=== PATIENT | female | born 1970 | race Two or more races ===

== ENCOUNTER 2024-04-01 14:43 | Outpatient (AMB) | payer BC, MEDICAID, SELFPAY ==
[2024-04-01 15:03] VITALS: BP 123/83; PULSE 75; RESP 18; TEMP 36.8; O2SAT 98; BMI 27.5
--- NOTE | 2024-04-01 15:03 | PD.ORTHCLVIS ---
Vital signs 04/01/24 15:03 Height 1.68 m Height Method Stated Weight 77.621 kg Weight Measurement Method Standing Scale BMI 27.5 BP 123/83 Blood Pressure Source Automatic Cuff Blood Pressure Location Right Upper Arm Position Sitting Respiration 18 Pulse 75 Pulse Source Monitor Temp 98.3 F Temp Source Temporal Artery Scan Pulse Oximetry (%) 98 Oxygen Delivery Method Room Air Med/Allergies Allergies & Medications Allergies No Known Drug Allergies Allergy (Verified 04/01/24 15:04) Medication Reconciliation meloxicam 7.5 mg tablet 7.5 mg PO QDAY #45 tabs 10/12/23 [Rx Confirmed 04/01/24] Subjective Visit Visit for: follow up visit and knee (LEFT) Immunization / Flu Flu Vaccine in the Last 12 Months: No Flu Vaccine Exclusion Criteria: Refused by Patient History of Present Illness Chief complaint: LEFT KNEE PAIN Patient is a 53-year-old female with 4 months of left knee pain. She was found to have a Herrera's cyst. She reports that she has difficulty bending when she has this. She has not had any injections and that has not had any anti-inflammatories. 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 Exam Exam Patient is in no acute distress and is cooperative with the examination today. Breathing is nonlabored. Patient has a normal mood and affect. Bilateral extremities were evaluated and demonstrates sensation intact to light touch. Palpable pedal pulses are present. No significant edema is present. Bilateral hips were examined. The patient has no pain with log roll of the hips. Internal rotation to 30 degrees and external rotation to 30 degrees is painless. Negative FADIR. Right knee was examined today. The right knee is in reasonable alignment. Range of motion from 0-120 degrees. Knee is stable to varus and valgus as well as AP translation with <5mm. Patient has a negative McMurrays. There is no pain with patellofemoral compression and no crepitus noted. The knee is nontender to palpation. Left knee was examined today. The left knee is in [varus] alignment. Range of motion from [0-115] degrees. Knee is stable to varus and valgus as well as AP translation with <5mm. Patient has a [negative] McMurrays. There is [no] pain with patellofemoral compression and [no] crepitus noted. The knee is [tender] to palpation [medially]. She does have a Herrera's cyst posteriorly Xrays demonstrate moderate arthritis of the left knee. Assessment and Plan Problem List (1) Arthritis of left knee: Status: Acute (2) Bakers cyst: Status: Acute Plan: Patient is a 53-year-old female with a Herrera's cyst and left knee pain. We discussed the natural history of arthritis in great detail. WShe has done somewhat better with meloxicam. We discussed we can try anti-inflammatories or injections. She would like a cortisone injection today. The patient has a lot of swelling in her left leg. It starts from the thigh and goes all the way down to her toes. I discussed with her that she should see her primary care doctor for this swelling. It is unlikely to be just from the knee alone. Recommend knee cortisone injection as patient would like to proceed with conservative treatment at this time. The risks and benefits of the procedure were reviewed with the patient and patient gave verbal consent to continue with the procedure. Procedure: performed by Dr. Mclean Using sterile technique the left knee was thoroughly prepped with alcohol, and approximately 1 cc of Kenalog 40 mg/mL and 4 cc of 1% lidocaine was injected without resistance into the medial tibial femoral joint space. The patient tolerated the procedure. Office Procedures GNS Level of Care Nursing/Assessment Patient Status: Established Patient Nursing Assessment/Reassesment: Medication Reconciliation, Update PMH in EMR and Vital Signs Coordination of Care: Complex Care and Chronic Disease 1-5, Education Complex Pt/Fam, Consent,records obtained, informed consent, Results/Orders obtained and Staff clarify orders Established Patient Charge Established Patient Point Assignment: 95 Established Patient Point Charge: EP Level 3 (80-115) Surgical Proc/IM SQ injection Major Surgical Procedure: Yes (knee injection ) Medication Given Medication Given Medication Given: Yes Documented Dose Given: 4 Route: Infiitration Medication Given Medication Given Medication Given: Yes Documented Dose Given: 1 Route: Infiitration Office Meds Xylocaine 10 mg/mL (1 %) injection solution Performing Provider: Abdullahi Mclean MD Performing Location: [facility] Administered by: Abdullahi Mclean MD on 04/01/24 15:43 Dose Route Admin Location Dispensed Lot Number Expiration Date [facility] Transition Rn 20 mL Infiltration 20 mL [id number] 12/10/26 71016-038-12 [facility] triamcinolone acetonide 40 mg/mL suspension for injection Performing Provider: Abdullahi Mclean MD Performing Location: [facility] Administered by: Abdullahi Mclean MD on 04/01/24 15:43 Dose Route Admin Location Dispensed Lot Number Expiration Date [facility] Transition Rn 40 mg Infiltration 1 mL [id number] 12/10/25 [address]-5 [employer] Past Medical History Past Medical History Have you ever been diagnosed with any of the following: Respiratory Problems Smoking: Yes (8 YEARS) Smoking Exposure: Yes
== END 2024-04-01 15:47 | disposition home or self-care (01) ==
PROVIDERS: PCP Family Medicine; Referring Provider Family Medicine; Supervising Provider Orthopaedic Surgery Adult Reconstructive Orthopaedic Surgery; Visit Provider Orthopaedic Surgery Adult Reconstructive Orthopaedic Surgery
DX: M17.12 Unilateral primary osteoarthritis, left knee (principal); M71.22 Synovial cyst of popliteal space [Baker], left knee; M25.562 Pain in left knee
CPT/HCPCS: 20610; 99213; J3301; J3490; G0463

== ENCOUNTER 2024-07-03 09:00 | Outpatient (AMB) | payer MEDICAID, SELFPAY ==
--- NOTE | 2024-07-03 09:36 | PD.ORTHCLVIS ---
Vital signs 07/03/24 09:41 Height 1.68 m Height Method Stated Weight 79.577 kg Weight Measurement Method Standing Scale BMI 28.2 BP 120/81 Blood Pressure Source Automatic Cuff Blood Pressure Location Left Upper Arm Position Sitting Respiration 18 Pulse 68 Pulse Source Monitor Temp 97.8 F Temp Source Temporal Artery Scan Pulse Oximetry (%) 98 Oxygen Delivery Method Room Air Med/Allergies Allergies & Medications Allergies No Known Drug Allergies Allergy (Verified 07/03/24 09:41) Medication Reconciliation meloxicam 7.5 mg tablet 7.5 mg PO QDAY #45 tabs 10/12/23 [Rx Confirmed 07/03/24] Exam Exam Patient is in no acute distress and is cooperative with the examination today. Breathing is nonlabored. Patient has a normal mood and affect. Bilateral extremities were evaluated and demonstrates sensation intact to light touch. Palpable pedal pulses are present. No significant edema is present. Bilateral hips were examined. The patient has no pain with log roll of the hips. Internal rotation to 30 degrees and external rotation to 30 degrees is painless. Negative FADIR. Right knee was examined today. The right knee is in reasonable alignment. Range of motion from 0-120 degrees. Knee is stable to varus and valgus as well as AP translation with <5mm. Patient has a negative McMurrays. There is no pain with patellofemoral compression and no crepitus noted. The knee is nontender to palpation. Left knee was examined today. The left knee is in [varus] alignment. Range of motion from [0-115] degrees. Knee is stable to varus and valgus as well as AP translation with <5mm. Patient has a [negative] McMurrays. There is [no] pain with patellofemoral compression and [no] crepitus noted. The knee is [tender] to palpation [medially]. She does have a Herrera's cyst posteriorly Xrays demonstrate moderate arthritis of the left knee. Assessment and Plan Problem List (1) Arthritis of left knee: Status: Acute (2) Bakers cyst: Status: Acute Plan: Patient is a 53-year-old female with a Herrera's cyst and left knee pain. We discussed the natural history of arthritis in great detail. She has done somewhat better with meloxicam. WShe would like another cortisone injection today. Recommend knee cortisone injection as patient would like to proceed with conservative treatment at this time. The risks and benefits of the procedure were reviewed with the patient and patient gave verbal consent to continue with the procedure. Procedure: performed by Dr. Mclean Using sterile technique the left knee was thoroughly prepped with alcohol, and approximately 1 cc of Kenalog 40 mg/mL and 4 cc of 1% lidocaine was injected without resistance into the medial tibial femoral joint space. The patient tolerated the procedure. Office Procedures GNS Level of Care Nursing/Assessment Patient Status: Established Patient Nursing Assessment/Reassesment: Medication Reconciliation, Update PMH in EMR and Vital Signs Coordination of Care: Complex Care and Chronic Disease 1-5, Consent,records obtained, informed consent, Education Simp Pt/Fam, Results/Orders obtained and Staff clarify orders Established Patient Charge Established Patient Point Assignment: 90 Established Patient Point Charge: EP Level 3 (80-115) Medication Given Medication Given Medication Given: Yes Documented Dose Given: 4 Route: Infiitration Medication Given Medication Given Medication Given: Yes Documented Dose Given: 1 Route: Infiitration Office Meds Xylocaine 10 mg/mL (1 %) injection solution Performing Provider: Abdullahi Mclean MD Performing Location: [facility] Administered by: Abdullahi Mclean MD on 07/03/24 09:56 Dose Route Admin Location Dispensed Lot Number Expiration Date [facility] Director [employer] 20 mL Infiltration 20 mL [id number] 09/11/27 92759-667-40 [facility] triamcinolone acetonide 40 mg/mL suspension for injection Performing Provider: Abdullahi Mclean MD Performing Location: [facility] Administered by: Abdullahi Mclean MD on 07/03/24 09:56 Dose Route Admin Location Dispensed Lot Number Expiration Date [facility] Director Of [employer] 40 mg Infiltration KNEE 1 mL [id number] 10/10/25 9622-6918-60 [facility] [place] Intake Visit Data Collection New Patient or Established: Established Patient (seen at [facility] within 3 years) Reason for Visit:: FOLLOW UP L KNEE INJ Seen by Clinical Staff ONLY (RN/MA): No Pediatrician Required: No PCP or OBGYN visit in last 3 months: Yes Hx Now: No Do You Feel Safe at Home: Yes Authorities Contacted: N/A Questionairres Past Medical History Past Medical History Have you ever been diagnosed with any of the following: Respiratory Problems Smoking: Yes (8 YEARS) Smoking Exposure: Yes Subjective Visit Visit for: follow up visit, knee and injections Immunization / Flu Flu Vaccine in the Last 12 Months: No Flu Vaccine Exclusion Criteria: No Exclusion Criteria History of Present Illness Chief complaint: bilateral knee pain Patient is a 54-year-old female with bilateral knee pain and bilateral knee arthritis worse on the left. She does have a popliteal cyst. 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 She would like another cortisone injection today as she had dramatic relief with the last one Pain Pain level (0-10): 4 Pain duration: ON AND OFF Pain location: inside (medial) and anterior Pain quality: dull and aching Pain timing: increases with activity Associated signs & symptoms: none Ambulatory data Ambulatory device: none Treatments Number of previous injections: 2 Improvement with previous injections: Yes Improvement with PT: No Improvement with NSAIDS: no Review of Systems Review of Systems: All systems negative unless otherwise noted in HPI.
[2024-07-03 09:41] VITALS: BP 120/81; PULSE 68; RESP 18; TEMP 36.6; O2SAT 98; BMI 28.2
== END 2024-07-03 09:42 | disposition home or self-care (01) ==
LOC: HODSRG 09:00
PROVIDERS: PCP Family Medicine; Referring Provider Family Medicine; Supervising Provider Orthopaedic Surgery Adult Reconstructive Orthopaedic Surgery; Visit Provider Orthopaedic Surgery Adult Reconstructive Orthopaedic Surgery
DX: M17.12 Unilateral primary osteoarthritis, left knee (principal); M71.22 Synovial cyst of popliteal space [Baker], left knee
CPT/HCPCS: 20610; 99213; J3301; J3490; G0463

== ENCOUNTER 2024-10-28 07:53 | Outpatient (AMB) | payer MEDICAID, SELFPAY ==
--- NOTE | 2024-10-28 08:10 | ORTHONT_ITS ---
Vital signs 10/28/24 08:11 Height 1.68 m Height Method Stated Weight 78.018 kg Weight Measurement Method Standing Scale BMI 27.6 BP 102/70 Blood Pressure Source Automatic Cuff Blood Pressure Location Left Upper Arm Position Sitting Respiration 18 Pulse 58 L Pulse Source Monitor Temp 97.4 F Temp Source Temporal Artery Scan Pulse Oximetry (%) 95 Oxygen Delivery Method Room Air Med/Allergies Allergies & Medications Allergies No Known Drug Allergies Allergy (Verified 10/28/24 08:12) Medication Reconciliation meloxicam 7.5 mg tablet 7.5 mg PO QDAY #45 tabs 10/12/23 [Rx Confirmed 10/28/24] Exam Exam Patient is in no acute distress and is cooperative with the examination today. Breathing is nonlabored. Patient has a normal mood and affect. Bilateral extremities were evaluated and demonstrates sensation intact to light touch. Palpable pedal pulses are present. No significant edema is present. Bilateral hips were examined. The patient has no pain with log roll of the hips. Internal rotation to 30 degrees and external rotation to 30 degrees is painless. Negative FADIR. Right knee was examined today. The right knee is in reasonable alignment. Range of motion from 0-120 degrees. Knee is stable to varus and valgus as well as AP translation with <5mm. Patient has a negative McMurrays. There is no pain with patellofemoral compression and no crepitus noted. The knee is nontender to palpation. Left knee was examined today. The left knee is in [varus] alignment. Range of motion from [0-115] degrees. Knee is stable to varus and valgus as well as AP translation with <5mm. Patient has a [negative] McMurrays. There is [no] pain with patellofemoral compression and [no] crepitus noted. The knee is [tender] to palpation [medially]. She does have a Herrera's cyst posteriorly Xrays demonstrate moderate arthritis of the left knee. Assessment and Plan Problem List (1) Arthritis of left knee: Status: Acute (2) Bakers cyst: Status: Acute Plan: Patient is a 53-year-old female with a Herrera's cyst and left knee pain. We discussed the natural history of arthritis in great detail. She has done somewhat better with meloxicam. She would like another cortisone injection today. Recommend knee cortisone injection as patient would like to proceed with conservative treatment at this time. The risks and benefits of the procedure were reviewed with the patient and patient gave verbal consent to continue with the procedure. Procedure: performed by Dr. Mclean Using sterile technique the left knee was thoroughly prepped with alcohol, and approximately 1 cc of Kenalog 40 mg/mL and 4 cc of 1% lidocaine was injected without resistance into the medial tibial femoral joint space. The patient tolerated the procedure. Office Procedures GNS Level of Care Nursing/Assessment Patient Status: Established Patient Nursing Assessment/Reassesment: Medication Reconciliation, Update PMH in EMR and Vital Signs Coordination of Care: Complex Care and Chronic Disease 1-5, Education Complex Pt/Fam, Consent,records obtained, informed consent, Results/Orders obtained and Staff clarify orders Established Patient Charge Established Patient Point Assignment: 95 Established Patient Point Charge: EP Level 3 (80-115) Surgical Proc/IM SQ injection Major Surgical Procedure: Yes (LEFT KNEE INJECTION) Medication Given Medication Given Medication Given: Yes Documented Dose Given: 4 Route: Infiitration Medication Given Medication Given Medication Given: Yes Documented Dose Given: 1 Route: Infiitration Office Meds Xylocaine 10 mg/mL (1 %) injection solution Performing Provider: Abdullahi Mclean MD Performing Location: [facility] Administered by: Abdullahi Mclean MD on 10/28/24 08:16 Dose Route Admin Location Dispensed Lot Number Expiration Date [facility] Software [employer] 20 mL Infiltration 20 mL [id number] 09/11/27 96077-495-86 [facility] triamcinolone acetonide 40 mg/mL suspension for injection Performing Provider: Abdullahi Mclean MD Performing Location: [facility] Administered by: Abdullahi Mclean MD on 10/28/24 08:16 Dose Route Admin Location Dispensed Lot Number Expiration Date [facility] [employer] 40 mg intra-articular KNEE 1 mL [id number] 12/10/25 92495-195-18 [facility] [place] Intake Visit Data Collection New Patient or Established: Established Patient (seen at [facility] within 3 years) Reason for Visit:: 3 MTH LEFT KNEE INJ Seen by Clinical Staff ONLY (RN/MA): No PCP or OBGYN visit in last 3 months: Yes Hx Now: No Do You Feel Safe at Home: Yes Authorities Contacted: N/A Questionairres Past Medical History Past Medical History Have you ever been diagnosed with any of the following: Respiratory Problems Smoking: Yes (8 YEARS) Smoking Exposure: Yes Subjective Visit Visit for: follow up visit, knee and injections Immunization / Flu Flu Vaccine in the Last 12 Months: No Flu Vaccine Exclusion Criteria: No Exclusion Criteria History of Present Illness Chief complaint: bilateral knee pain Patient is a 54-year-old female with bilateral knee pain and bilateral knee arthritis worse on the left. She does have a popliteal cyst. 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 She would like another cortisone injection today as she had dramatic relief with the last one Personal History Red flag PMH: smoker Pain Pain level (0-10): 4 Pain duration: WITH MOVEMENT Pain location: anterior Pain quality: other (specify) (SWELLING) Pain timing: increases with activity Associated signs & symptoms: none Ambulatory data Ambulatory device: none Treatments Number of previous injections: 2 Improvement with previous injections: Yes Improvement with PT: No Improvement with NSAIDS: no Review of Systems Review of Systems: All systems negative unless otherwise noted in HPI.
[2024-10-28 08:11] VITALS: BP 102/70; PULSE 58; RESP 18; TEMP 36.3; O2SAT 95; BMI 27.6
== END 2024-10-28 08:15 | disposition home or self-care (01) ==
LOC: HODSRG 07:53
PROVIDERS: PCP Family Medicine; Referring Provider Family Medicine; Supervising Provider Orthopaedic Surgery Adult Reconstructive Orthopaedic Surgery; Visit Provider Orthopaedic Surgery Adult Reconstructive Orthopaedic Surgery
DX: M17.12 Unilateral primary osteoarthritis, left knee (principal); M71.22 Synovial cyst of popliteal space [Baker], left knee; M25.562 Pain in left knee
CPT/HCPCS: 20610; 99213; J3301; J3490; G0463